=== PATIENT | female | born 1990 | race Caucasian/White ===

== ENCOUNTER 2021-07-29 09:07 | Emergency (ER) | payer SELFPAY ==
[~2021-07-29] VITALS: Ht 160 cm; Wt 65.8 kg
[2021-07-29 09:09] VITALS: BP 125/79
--- NOTE | 2021-07-29 09:13 | NUR ---
PT AMBULATED TO BED 04.
--- NOTE | 2021-07-29 09:18 | NUR ---
BIB SELF C/O COUGH , SORE THRAOT X 5 DAYS. DENIES N/V/D; SKIN IS PINK/WARM/DRY; AAOX4 WITH EVEN AND STEADY GAIT; LUNGS CLEAR BL; HR EVEN AND REGULAR; PT DENIES ANY FEVER, CP OR SOB AT THIS TIME; PATIENT STATES PAIN OF 5/10 AT THIS TIME; VSS. ER MD MADE AWARE OF PT STATUS.
[2021-07-29] MEDS ORDERED: PRED20TA5 PO (09:34)
[2021-07-29] MEDS ORDERED: IBUP-2213 PO (09:34)
[2021-07-29 09:39] VITALS: BP 125/79
--- NOTE | 2021-07-29 09:39 | NUR ---
Patient discharged with v/s stable. Written and verbal after care instructions given and explained. Patient alert, oriented and verbalized understanding of instructions. Ambulatory with steady gait. All questions addressed prior to discharge. ID band removed. Patient advised to follow up with PMD. Rx of IBUPROFEN & DELTASONE given. Patient educated on indication of medication including possible reaction and side effects. Opportunity to ask questions provided and answered.
== END 2021-07-29 09:39 | disposition home or self-care (01) ==
LOC: MED 09:07
DX: R05.9 Cough, unspecified (principal); R53.83 Other fatigue; F17.200 Nicotine dependence, unspecified, uncomplicated; Z98.890 Other specified postprocedural states
CPT/HCPCS: 99283

== ENCOUNTER 2021-11-16 08:51 | Emergency (ER) | payer SELFPAY ==
[~2021-11-16] VITALS: Ht 157.5 cm; Wt 65.8 kg
[~2021-11-16 08:51] MED LIST: IBUP-2213 PO; PRED20TA5 PO
[2021-11-16 09:05] VITALS: BP 133/92
--- NOTE | 2021-11-16 10:00 | NUR ---
31 y/o female, c/o chest congestion, sore throat, wet cough with not much cough production for 1.5 weeks.
[2021-11-16] MEDS ORDERED: AZIT250T4 PO (10:38)
[2021-11-16] MEDS ORDERED: PRED20TA5 PO (10:38)
[2021-11-16] MEDS ORDERED: ALBU0.0912 IH (10:38)
[2021-11-16 11:02] VITALS: BP 124/89
--- NOTE | 2021-11-16 11:04 | NUR ---
Patient discharged with v/s stable. Written and verbal after care instructions given and explained. Patient alert, oriented and verbalized understanding of instructions. Ambulatory with steady gait. All questions addressed prior to discharge. ID band removed. Patient advised to follow up with PMD. Rx of DELTASONE,Z-PACK, PROVENTIL given. Patient educated on indication of medication including possible reaction and side effects. Opportunity to ask questions provided and answered.
== END 2021-11-16 11:02 | disposition home or self-care (01) ==
LOC: MED 08:51
DX: J20.9 Acute bronchitis, unspecified (principal)
CPT/HCPCS: 71045; 99283; Q0092

== ENCOUNTER 2023-06-14 11:18 | Emergency (ER) | payer SELFPAY ==
[~2023-06-14] VITALS: Ht 157.5 cm; Wt 62.6 kg
[~2023-06-14 11:18] MED LIST changes: +ALBU0.0912 IH; +AZIT250T4 PO
[2023-06-14 12:05] VITALS: BP 131/88; PULSE 100; RESP 20; TEMP 98.3; O2SAT 99
[2023-06-14 13:31] VITALS: BP 126/86; PULSE 98; RESP 18; TEMP 98.5; O2SAT 98
[2023-06-14] MEDS: KETOROLAC 30 MG/ML VIAL IM ONE (13:58)
[2023-06-14] MEDS ORDERED: CAPS1ADH5 TP (15:35)
[2023-06-14] MEDS ORDERED: IBUP-2213 PO (15:35)
== END 2023-06-14 15:42 | disposition home or self-care (01) ==
LOC: MED 11:18
DX: M77.11 Lateral epicondylitis, right elbow (principal); D25.9 Leiomyoma of uterus, unspecified; N83.202 Unspecified ovarian cyst, left side; N83.201 Unspecified ovarian cyst, right side; Z98.890 Other specified postprocedural states; Z79.899 Other long term (current) drug therapy
CPT/HCPCS: 76856; 81025; 96372; 99285; J1885

== ENCOUNTER 2023-07-03 23:30 | Emergency (ER) | payer SELFPAY ==
[~2023-07-03] VITALS: Ht 157.5 cm; Wt 63.5 kg
[~2023-07-03 23:30] MED LIST changes: +CAPS1ADH5 TP
[2023-07-03 23:41] VITALS: BP 123/80; PULSE 88; RESP 16; TEMP 97.6; O2SAT 99
[2023-07-04 00:43] LABS: BASOPHILS % (AUTO) 0.8 % (0.0-2.0); EOSINOPHILS # (AUTO) 0.1 K/uL (0-0.4); EOSINOPHILS % (AUTO) 1.9 % (0.0-4.0); HEMATOCRIT 36.7 % (36-48); LYMPHOCYTES # (AUTO) 1.8 K/uL (2.5-16.5); MEAN CORPUSCULAR HEMOGLOBIN 34 pg (27-31); MEAN CORPUSCULAR HGB CONC 36 g/dL (33-37); MEAN CORPUSCULAR VOLUME 94.4 fL (80-94); MONOCYTES # (AUTO) 0.4 K/uL (0.8-1.0); MONOCYTES % (AUTO) 7.6 % (1.7-9.3); NEUTROPHILS # (AUTO) 3.3 K/uL (1.8-7.7); NEUTROPHILS % (AUTO) 57.7 % (42.2-75.2); PLATELET COUNT (AUTO) 213 K/uL (140-450); RED BLOOD CELL COUNT(AUTO) 3.89 MIL/uL (4.20-5.40); RED CELL DISTRIBUTION WIDTH 12.5 % (11.6-13.7); WHITE BLOOD COUNT (AUTO) 5.7 K/uL (4.8-10.8)
[2023-07-04 00:47] LABS: ANION GAP 12.3 (8-16); CALCIUM 8.9 mg/dL (8.5-10.1); CARBON DIOXIDE 29.9 mmol/L (21-32); CREATININE 0.5 mg/dL (0.6-1.3); POTASSIUM 3.2 mmol/L (3.5-5.1)
[2023-07-04 00:49] LABS: APPEARANCE,URINE CLEAR (CLEAR); BILIRUBIN,URINE NEGATIVE (NEGATIVE); BLOOD, URINE NEGATIVE (NEGATIVE); COLOR,URINE YELLOW (YELLOW); LEUKOCYTE ESTERASE ,URINE 1+ (NEGATIVE); NITRITE, URINE NEGATIVE (NEGATIVE); PH,URINE 6.5 (5.0-9.0); PROTEIN,URINE NEGATIVE (NEGATIVE); UGLUCOSE NEGATIVE (NEGATIVE); UROBILINOGEN,URINE 0.2 EU/dL (0.2 - 1)
[2023-07-04 00:53] LABS: BACTERIA,URINE 10-30 (MOD) /HPF (None Seen); RBC,URINE 0-5 /HPF (0-5)
[2023-07-04 00:53] LABS: BILIRUBIN,DIRECT 0.2 mg/dL (0.0-0.3); TOTAL BILIRUBIN 0.5 mg/dL (0.0-1.0)
[2023-07-04 00:54] LABS: MUCUS,URINE 1+ /LPF (None Seen); SQUAMOUS EPITHELIAL CELL,UR 0-3 (FEW) /LPF (0-3 (FEW))
[2023-07-04 00:57] LABS: AMPHETAMINE, URINE POSITIVE ng/ml (NEG <=1000); BARBITURATE, URINE NEGATIVE ng/ml (NEG <=200); BENZODIAZEPINE, URINE NEGATIVE ng/mL (NEG <=200); CANNABINOID, URINE POSITIVE ng/mL (NEG <=50); COCAINE, URINE NEGATIVE ng/mL (NEG <=300)
[2023-07-04 00:58] LABS: OPIATE, URINE NEGATIVE ng/mL (NEG <=2000); PHENCYCLIDINE SCREEN,URINE NEGATIVE ng/mL (NEG <=25)
[2023-07-04 01:31] VITALS: BP 123/80; PULSE 88; RESP 16; TEMP 97.6; O2SAT 99
== END 2023-07-04 01:31 | disposition home or self-care (01) ==
LOC: MED 23:30
DX: F15.129 Other stimulant abuse with intoxication, unspecified (principal); Z79.899 Other long term (current) drug therapy
CPT/HCPCS: 36415; 80048; 80076; 80305; 81001; 85025; 87086; 99283